=== PATIENT | male | born 1980 | race Caucasian/White ===

== ENCOUNTER 2017-10-27 11:42 | Outpatient (CLI) | payer BC | END 2017-10-27 11:43 | disposition home or self-care (01) | LOC: BICRAD 11:42 | PROVIDERS: ATTEND Family Medicine | DX: J45.909 Unspecified asthma, uncomplicated (principal); R05 Cough; J32.9 Chronic sinusitis, unspecified | CPT/HCPCS: 71046 ==

== ENCOUNTER 2017-10-29 11:01 | Outpatient (CLI) | payer BC | END 2017-10-29 11:02 | disposition home or self-care (01) | LOC: BICCT 11:01 | PROVIDERS: ATTEND Family Medicine | DX: J32.0 Chronic maxillary sinusitis (principal); J34.2 Deviated nasal septum; J34.89 Other specified disorders of nose and nasal sinuses; J45.909 Unspecified asthma, uncomplicated ==

== ENCOUNTER 2019-09-23 13:24 | Outpatient (CLI) | payer BC ==
--- NOTE | 2019-09-23 13:46 | RAD ---
EXAM: Chest PA and lateral: HISTORY: Intermittent cough. COMPARISON: 10/27/2017 FINDINGS: Heart: Normal cardiac silhouette Aorta: Unremarkable Pulmonary vessels: Normal Costophrenic angles: Costophrenic angles are clear. Lungs: No consolidation or masses. Pneumothorax: No pneumothorax Osseous structures: No osseous abnormalities IMPRESSION: No acute cardiopulmonary process.
== END 2019-09-23 13:25 | disposition home or self-care (01) ==
LOC: BICRAD 13:24
DX: J45.909 Unspecified asthma, uncomplicated (principal); J30.2 Other seasonal allergic rhinitis; R06.2 Wheezing; R06.00 Dyspnea, unspecified; R05 Cough
CPT/HCPCS: 71046

== ENCOUNTER 2020-02-08 13:09 | Outpatient (CLI) | payer BC ==
--- NOTE | 2020-02-08 13:51 | RAD ---
EXAM: Chest 2 views: HISTORY: Dyspnea COMPARISON: 09/23/2019 FINDINGS: There is a normal-sized cardiomediastinal silhouette. There is no evidence of consolidation, mass, or pleural effusion. No acute osseous abnormality. IMPRESSION: No evidence of acute cardiopulmonary disease
== END 2020-02-08 13:10 | disposition home or self-care (01) ==
LOC: BICRAD 13:09
PROVIDERS: ATTEND Internal Medicine Pulmonary Disease
DX: R06.00 Dyspnea, unspecified (principal)
CPT/HCPCS: 71046

== ENCOUNTER 2022-09-20 09:40 | Outpatient (CLI) | payer BC | END 2022-09-20 09:41 | disposition home or self-care (01) | LOC: BICRAD 09:40 | PROVIDERS: ATTEND Nurse Practitioner Family | DX: J18.1 Lobar pneumonia, unspecified organism (principal); R06.00 Dyspnea, unspecified; R05.1 Acute cough; R53.83 Other fatigue | CPT/HCPCS: 71046 ==